=== PATIENT | female | born 1960 | race African-American/Black ===

== ENCOUNTER 2017-12-31 13:56 | Emergency (ER) | payer OTHER ==
[2017-12-31] MEDS ORDERED: NORMAL SALINE 1000 ML 1,000 ML IV ONE (14:21)
--- NOTE | 2017-12-31 14:22 | ER Document Report ---
ED Medical Screen (RME) - General Chief Complaint: Nausea/Vomiting Stated Complaint: VOMITING Time Seen by Provider: 12/31/17 14:15 Mode of Arrival: Ambulatory Information source: Patient Notes: This is a 57-year-old female with a history of breast cancer status post chemotherapy (doxorubicin, Cytoxan) last Monday who presents to the emergency room with nausea, vomiting, weakness, decreased p.o. intake. Patient does state that this is not uncommon after chemotherapy and she sometimes requires IV fluids. She feels dehydrated now. TRAVEL OUTSIDE OF THE [place] IN LAST 30 DAYS: No - HPI Onset: Last week Onset/Duration: Gradual Quality of pain: No pain Severity: None Pain Level: Denies Associated Symptoms: Nausea. denies: Chest pain, Shortness of breath Exacerbated by: Denies Relieved by: Denies Similar symptoms previously: Yes Recently seen / treated by doctor: Yes - Related Data Smoking: Non-smoker Frequency of alcohol use: None Drug Abuse: None Allergies/Adverse Reactions: amoxicillin [From Augmentin] Allergy (Verified 12/31/17 14:12) clavulanic acid [From Augmentin] Allergy (Verified 12/31/17 14:12) IV contrast dye Allergy (Uncoded 12/31/17 14:12) Past Medical History - General Information source: Patient - Social History Cigarette use (# per day): No Chew tobacco use (# tins/day): No Frequency of alcohol use: None Drug Abuse: None Lives with: Family Family history: None - Past Medical History Cardiac Medical History: Reports: Hx Hypertension Renal/ Medical History: Denies: Hx Peritoneal Dialysis Past Surgical History: Reports: Hx Hysterectomy, Hx Tubal Ligation Review of Systems - Review of Systems Constitutional: denies: Chills, Fever EENT: No symptoms reported Cardiovascular: denies: Chest pain, Palpitations, Heart racing Respiratory: denies: Cough, Short of breath, Wheezing Gastrointestinal: Nausea. denies: Abdominal pain Genitourinary: No symptoms reported Female Genitourinary: No symptoms reported Musculoskeletal: No symptoms reported Skin: No symptoms reported Hematologic/Lymphatic: No symptoms reported Neurological/Psychological: No symptoms reported Physical Exam - Vital signs Vitals: Temp Pulse Resp BP Pulse Ox 97.6 F 73 17 116/72 98 12/31/17 14:03 12/31/17 14:03 12/31/17 14:03 12/31/17 14:03 12/31/17 14:03 Notes: Physical exam: GENERAL: 57-year-old female, alert and oriented x3, no acute distress. HEAD: Atraumatic, normocephalic. EYES: Pupils equal round and reactive to light, extraocular movements intact, sclera anicteric, conjunctiva are normal. ENT: Oropharynx clear without exudates. Dry mucous membranes. NECK: Normal range of motion, supple without obvious mass or JVD. LUNGS: Breath sounds clear to auscultation bilaterally and equal. No wheezes rales or rhonchi. HEART: Regular rate and rhythm without murmurs, rubs or gallops. EXTREMITIES: Normal range of motion, no pitting or edema. No clubbing or cyanosis. NEUROLOGICAL: Cranial nerves II through XII grossly intact. Normal speech, moving all extremities. PSYCH: Normal mood, normal affect. SKIN: Warm, Dry, normal turgor, no rashes or lesions noted. Course - Re-evaluation Re-evalutation: 12/31/17 15:56 Patient treated with IV fluids. States she feels much better and is ready to go home. - Vital Signs Vital signs: Temp Pulse Resp BP Pulse Ox 97.6 F 80 17 120/64 98 12/31/17 14:03 12/31/17 16:08 12/31/17 16:08 12/31/17 16:08 12/31/17 16:08 Doctor's Discharge - Discharge Clinical Impression: Dehydration, Post chemotherapy nausea Condition: Stable Disposition: HOME, SELF-CARE Additional Instructions: Recommendations: Rest, drink small amounts of fluids regularly and advance diet as tolerated. Continue with your nausea medicine. Follow-up with your oncologist when back in [place]. Return to the emergency room for any abdominal pain, worsening nausea or vomiting.
[2017-12-31 16:09] VITALS: BP 120/64
== END 2017-12-31 16:17 | disposition home or self-care (01) ==
LOC: ER 13:56
DX: R11.2 Nausea with vomiting, unspecified (principal); T45.1X5A Adverse effect of antineoplastic and immunosuppressive drugs, initial encounter; E86.0 Dehydration; C50.919 Malignant neoplasm of unspecified site of unspecified female breast; R53.1 Weakness; I10 Essential (primary) hypertension; Z88.0 Allergy status to penicillin; Z91.041 Radiographic dye allergy status
CPT/HCPCS: 36591; 96360; 99284